=== PATIENT | male | born 1970 | race Caucasian/White ===

== ENCOUNTER → 2024-11-05 | Outpatient (CLI) | payer BC, SELFPAY ==
--- NOTE | 2024-11-05 13:26 | NEURO ---
NCS and/or EMG Patient Report Ordering Doctor: Michael Chen DATE OF SERVICE: 11/05/24 Joe presents with complaints of numbness and burning in the right arm. He reports pain that radiates from the shoulder down tp the hand. Electrodiagnostic findings: Right median motor nerve demonstrates normal distal latency, amplitude with mildly reduced conduction velocity. Right ulnar motor response within normal limits. Normal sensory responses are noted. Needle EMG testing was performed in the upper limbs. All muscles tested showed no evidence of denervation with normal motor unit action potentials. Electrodiagnostic impression: This is a normal electrodiagnostic study of the right upper limb. There is no electrodiagnostic evidence for peripheral neuropathy, including recurrent carpal tunnel syndrome. There is no electrodiagnostic evidence for cervical radiculopathy or brachial plexopathy [facility] Codes Neurology Neurology Interp Codes: 83252-96 Musc test done w/n test comp (interp) and 53839-80 Nrv cndj test 7-8 studies (interp)
--- OUTSIDE RECORDS SUMMARY | 2024-11-05 19:37 | XMS RPT_ITS | CCD ---
Author Organization [facility] Care Team Providers Care Starch Cooker Name Role Phone FEROZ CARR Unavailable Unavailable FEROZ CARR Unavailable Unavailable NO FAMILY DOCTOR, NO FAMILY DOCTOR Unavailable Unavailable Dr. FEROZ CARR Attending Unavaila ROXIE Cope Attending Unavailable ROXIE CURRY Referring Unavailable Generic Provider , No Assigned Pcp Primary Car e Provider Unavailable FEROZ FARLEY Referring Unavailable GENERIC PROVIDER, NO ASSIGNED PCP Primary Care Unavailable Sergio PREM, Luke E Unavailable [phone] Unavailable Unavailable Maria Esther Tineo Unavailable Unavailable Olga Álvarez LPN Unavailable Unavailabl e SERGIO, LUKE E Attending Unavailable SERGIO, LUKE E Consulting Unavailable SERGIO, LUKE E Primary Care Unavailable SERGIO, LUKE E Admitting Unavailable PROVIDER, UNKNOWN Consulting Unavailable Sergio, Luke Referring Unavailable Sergio, Luke Attending Unavailable Sergio, Luke Consulting Unavailable Sergio, Luke Primary Care Unavailable Elliot SR VICE PRESIDENTSánchez Unavailable Unavailable Allergies Allergy Classification Reported Allergen(s) Allergy Type Date of Onset Reaction(s) Facility (1 source) ALLERGIES NOT ON FILE; Translations: [ALLERGIES NOT ON FILE] Propensity to adverse reactions (disorder) [facility] Repository Medications Current Medications Medication Drug Class(es) Dates Sig (Normalized) Sig (Original) cholecalciferol 0.05 mg oral tablet (7 sources) Vitamin D Vitamin D3 50 mc g (2,000 unit) tablet ; 1 tablet weekly (50 mcg (2,000 uni) Comments: takes 50,000iu Comment on above: takes 50,000iu hydroCHLOROthiazide 25 mg / spironolactone 25 mg oral tablet (7 sources) Thiazide Diuretic, Aldosterone Antagonist Start: 11-04-2024 spironolactone 25 mg-hydrochlorothia zide 25 mg tablet ; 1/2 tablet tablet daily for 0 days Quantity: 90 {Tablet} Refills: 0 Ordered: 04-Nov-2024 VELVET Zarate Start: 04-Nov-2024 levothyroxine sodium 0.137 mg oral tablet (14 sources) l-Thyroxine Start: 11-03-2024 levothyroxine 137 mcg tablet ; 1 (one) tablet daily for 90 days Quantity: 90 {Tablet} Refills: 0 Ordered: 04-Nov-2024 PREM Hill Start: 04-Nov-2024 Start: 09-09-2024 End: 10-14-2024 levothyroxine 137 mcg tablet ; 1 (one) tablet daily for 30 days Quantity: 30 {Tablet} Refills: 1 Ordered: 09-Sep-2024 VELVET Álvarez Start: 09-Sep-2024 pantoprazole 20 mg delayed release oral tablet (7 sources) Proton Pump Inhibitor pantoprazo le 20 mg tablet,delayed release ; 1 tablet daily (20 mg) tamsulosin hydrochloride 0.4 mg oral capsule (7 sources) alpha-Adrenergic Luda tamsulo sin 0.4 mg capsule ; 1 tab daily (0.4 mg) Completed/Discontinued Medications Medication Drug Class(es) Dates Sig (Normalized) Sig (Original) gabapentin 100 mg oral capsule (5 sources) Anti-epileptic Agent Start: 10-14-2024 End: 10-28-2024 gabapentin 100 mg capsule ; 2 (two) capsule three times daily for 14 days Quantity: 84 {Capsule} Refills: 0 Ordered: 14-Oct-2024 PREM Hill Start: 14-Oct-2024 End: 28-Oct-2024 Status: Inactive Problems Active Problems Problem Classification Problem Date Documented Date Episodic/Chronic Esophageal disorders (14 sources) Gastroesophageal reflux disease; Translations: [Gastro-esophageal reflux disease without esophagitis] 09-09-2024 Chronic Essential hypertension (15 sources) Hypertensive disorder; Translations: [Essential (primary) hypertension] 09-09-2024 Chronic Comment on above: spironolactone-HCTZ Hyperplasia of prostate (14 sources) Benign prostatic hyperplasia; Translations: [Benign prostatic hyperplasia without lower urinary tract symptoms] 09-09-2024 Chronic Comment on above: tamsulosin Nutritional deficiencies (14 sources) Vitamin D deficiency; Translations: [Vitamin D deficiency, unspecified] 09-09-2024 Chronic Comment on above: cholecalciferol Other lower respiratory disease (1 source) Unspecified acute lower respiratory infection; Translations: [Unspecified acute lower respiratory infection] Onset: 02-16-2024 Episodic Other nervous system disorders (10 sources) Paresthesia of right upper limb; Translations: [Paresthesia of skin] 10-14-2024 Episodic Thyroid disorders (20 sources) Hypothyroidism; Translations: [Hypothyroidism, unspecified] 09-09-2024 Chronic Unclassified (2 sources) Sprain of unspecified site of right knee, initial encounter / S83.91XA(ICD-9) Onset: 06-05-2017 Unclassified (1 source) Patient encounter status 03-26-2024 Past or Other Problems Problem Classification Problem Date Documented Date Episodic/Chronic Unclassified (1 source) Sprain of unspecified site of right knee, initial encounter; Translations: [Sprain of unspecified site of right knee, initial encounter] Onset: 06-05-2017 Unclassified (7 sources) establish care - Patient states that he was seeing Kimmy SO at [facility] and needed new PCP since she is no longer practicing. Patient states that he needs refills on his levothyroxine, he has been out of medication for approximately 3 weeks, he last notes TSH testing approximately 1 year ago. Patient states he has no other concerns for today. Patient states that all other medications are working well. 09-09-2024 Unclassified (5 sources) Arm pain - The pain is in the right arm. The onset of the pain has been gradual and has been occurring in a persistent pattern for 1 month. The course has been increasing. The pain is described as moderate. Note for Pain: Patient states he does have hx of shoulder dislocating/dislodg ing itself. Patient states no injury noted and, no new exertion. Patient states it feels like a burning and tingling when at it's worst. 10-14-2024 NEGATED: Highlighted row has been ruled out!Unclassified (1 source) No Problem Information Available Results Test Name Value Interpretation Reference Range Facility CERVICAL SP COMPLETE, 4 OR 5 VIEWS 05-27-2025 CERVICAL SP COMPLETE, 4 OR [address] [address] Patient: CHAVEZ CURRY Phone#: : [phone] Age: 54 Gender: M Pt. Type: Out Account: [id number] Location: [facility] Ordering: MICHAEL HILL Exam Date: 10/14/2024/16:42 Family Phys: Charge Code: [id number] Physician: Tompkins Order #: [id number] Dose#: PROCEDURE: X-RAY CERVICAL SPINE W/ AP, LATERAL, ODONTOID, AND OLBIQUES VIEWS COMPARISON: None. INDICATIONS: Paresthesia of right arm. FINDINGS: BONES: Vertebral bodies are maintained in height and alignment. Fracture subluxation. The dens is intact. Lateral masses are symmetric. Bulky facet arthropathy of the mid right cervical spine contributing to right C5-6 osseous foraminal narrowing limited evaluation of the left oblique radiograph due to patient positioning. DISC SPACES: Normal. No significant disc height narrowing, subluxation, or endplate abnormality. PARASPINOUS: Negative. No paraspinous abnormality is seen. OTHER: Negative. CONCLUSION: 1. Facet arthropathy contributes to at least right osseous foraminal narrowing Dictated by: Porsche Katz MD on 10/14/2024 at 17:10 Approved by: Porsche Katz MD on 10/14/2024 at 17:12 Normal [facility] T4, FREEon 10-11-2024 Free T4 [Mass/Vol] 1.1 ng/dL Normal 0.8-1.8 [facility] Comment on above: Performed By: #### 8 99, 551 #### [facility] [address], [address] [place] [phone] Returned Goods Sorter: Ervin cShafer MD TSHon 10-11-2024 TSH Qn 1.49 m[IU]/L Normal 0.40-4.50 [facility] Comment on above: Performed By: #### 8 99, 679 #### [facility] [address], [address] [place] [phone] Returned Goods Sorter: Ervin Schafer MD Laboratory - Chemistry and C hemistry - challengeon 10-10-2024 Free T4 [Mass/Vol] 1.1 ng/dL Normal 0.8 - 1.8 ng/dL [facility]. TSH Qn 1.49 m[IU]/L Normal 0.40 - 4.50 {mIU/L} [facility] [employer]. XR CHEST 1 VIEWon 03-26-2024 XR CHEST 1 VIEW Interpreted By: Romelia Treviño, STUDY: XR CHEST 1 VIEW; 03/26/2024 12:42 pm INDICATION: Signs/Symptoms:xray. COMPARISON: 03/14/2019 ACCESSION NUMBER(S): [id number] ORDERING CLINICIAN: FEROZ CARR FINDINGS: The heart is normal in size. There is consolidation or pleural fluid. The mediastinum is unremarkable. There are degenerative changes. COMPARISON OF FINDING: The chest is similar. IMPRESSION: No acute cardiopulmonary disease. MACRO: none Signed by: Romelia Herrera 03/28/2024 8:45 AM Dictation workstation: [id number] [facility] XR CHEST PA AND LATERALon XR CHEST PA AND LATERAL EXAMINATION: TWO XRAY VIEWS OF THE CHEST 02/16/2024 8:56 am COMPARISON: None. HISTORY: cough x 3 weeks, wheeze Pt presents with cough x 3 weeks, no previous sx to the chest or lungs, non smoker, cough is non productive with SOB at times, no other chest complaints FINDINGS: Mildly prominent interstitial markings could be congestive changes and or interstitial pneumonia. No focal consolidation, pneumothorax or significant pleural effusion. Cardiac and mediastinal silhouettes unremarkable. No acute osseous abnormality. IMPRESSION: Mildly prominent interstitial markings could be congestive changes and or interstitial pneumonia. Pt presents with cough x 3 weeks, no previous sx to the chest or lungs, non smoker, cough is non productive with SOB at times, no other chest complaints Normal [facility] Final Surgical Pathology Rep [facility] 05-15-2023 Final Surgical Pathology Report . Pathology Reports Accession: Collected Date/Time: Received Date/Time: Pathologist: [id number] 05/10/2023 10:48 EST 05/11/2023 08:15 EST MD STUART MURRIETA Final Surgical Pathology Report DIAGNOSIS: GASTRIC ANTRUM, BIOPSY: - MILD CHRONIC GASTRITIS - NEGATIVE FOR H. PYLORI CLINICAL INFORMATION: GASTROESOPHAGEAL REFLUX DISEASE SPECIMEN: A GASTRIC ANTRUM - H PYLORI GROSS DESCRIPTION: All parts labelled with patient name and [id number] Received in formalin labeled antrum are 2 lozano-pink tissue fragments measuring 0.2 and 0.4 x 0.2 cm. TS-1 Monica Childs, Grossing Char Conveyor Tender/ Dr. Arsen Joyner, Pathologist Dictated by Monica Childs MICROSCOPIC DESCRIPTION: The microscopic examination is performed, except in the case of Gross Only. Electronically Signed by Pathology Report verified by [facility] STUART MURRIETA MD Sign out Date: 05/15/2023 15:21 Performing Lab: [facility], [address] [place] [address] Pathology Dept Disclaimer If ancillary studies were utilized, the following Laboratory Developed Test (LDT) disclaimer will apply: Under CLIA requirements, [facility] Pathology Laboratory is qualified to perform high complexity testing. For all ancillary stains, positive and negative controls stain appropriately. Performance characteristics of immunohistochemical and chromogenic in-situ hybridization tests have been determined by [facility] Pathology Laboratory. These tests are used for clinical purposes, They should not be regarded as investigational or for research. Normal [facility] ([place]) LEAD,INDUSTRIAL EXPOSURE Kyrie LINDSEY 04-11-2022 LEAD, INDUSTRIAL <2.0 Normal <=4.9 [facility] Comment on above: Result Comment: INTE RPRETIVE INFORMATION: Lead, Industrial Exposure Panel, Adults Analysis performed by Inductively Coupled Plasma-Mass Spectrometry (ICP-MS). Elevated results may be due to skin or collection-related contamination, including the use of a noncertified lead-free collection/transport tube. If contamination concerns exist due to elevated levels of blood lead, confirmation with a second specimen collected in a certified lead-free tube is recommended. Reference interval and interpretive comments are based on the CDC's Childhood Lead Poisoning Prevention: Recommended Actions Based on Blood Lead Level and the Adult Blood Lead Epidemiology and Surveillance: Reference Blood Lead Levels (BLLs) for Adults in the [place] Thresholds and time intervals for retesting, medical evaluation, and response vary by state and regulatory body. Actions described by OSHA in 1978 and finalized in 1982 are shown below. Contact your State Department of Health and/or applicable regulatory agency for specific guidance on medical management recommendations. Concentration Comment 5-19.9 ug/dL Medical removal is recommended for women or those who are trying or may become . Adverse health effects are possible. Reduced lead exposure and increased blood lead monitoring are recommended. 20-69.9 ug/dL Adverse health effects are indicated. Medical removal from lead exposure is required by OSHA if blood lead level exceeds 50 ug/dL. Prompt medical evaluation is recommended. Greater than Critical. Immediate medical evaluation 69.9 ug/dL is recommended. Consider chelation therapy when symptoms of lead toxicity are present. Occupational Safety and Health Standards: Lead (1983). 29 CFR Part 1910.1025 Jaky C Action required for workers with Elevated Lead Values OSHA, Occupational Exposure to Lead, 1977 No. of Tests Lead Action Required 1 Greater than Notification of worker in or equal to writing; medical examination 40.0 ug/dL of worker and consultation. 3 (average) Greater than Removal of worker from job or equal to with potential lead 50.0 ug/dL exposure. 1 Greater than Removal of worker from job or equal to with potential lead 60.0 ug/dL exposure. 2 Less than Reinstatement of worker in 40.0 ug/dL job with potential lead exposure is based upon symptoms and medical evaluation. OSHA requirements in effect since 1977 call for the measurement of whole blood lead and zinc protoporphyrins (ZPP) (NCCLS document C42-A, 1995) to evaluate the occupational exposure to lead. OSHA requires ZPP whole blood testing to be reported in units of ug/dL. For adults, conversion of ZPP units of ug/dL whole blood assumes a hematocrit of 45 percent. Conversion factor: umol/mol heme x 0.584= ug/dL. This test was developed and its performance characteristics determined by [employer]. It has not been cleared or approved by the U.S. Food and Drug Administration. This test was performed in a CLIA-certified laboratory and is intended for clinical purposes. Performed By: #### L EDIP #### [facility] [address] [place] [address] ZINC, PROTOPORPHYRIN BLOOD 26 ug/dL Normal 0-40 [facility] Comment on above: Result Comment: INTE RPRETIVE INFORMATION: Zinc Protoporphyrin, Blood For occupational exposure to lead, OSHA requires ZPP whole blood concentration to be reported in units of ug/dL. For adults, conversion of ZPP to units of ug/dL assumes a hematocrit of 45%. This test was performed on the ProtoFluor Z system manufactured by [employer]. The result is not comparable to results obtained from extraction-based methods or from the [employer] ZPP system. This test was developed and its performance characteristics determined by [employer]. It has not been cleared or approved by the U.S. Food and Drug Administration. This test was performed in a CLIA-certified laboratory and is intended for clinical purposes. Performed By: [facility] [address] [place] [id number] Inserting Machine Operator: Jensen Last MD, PhD Performed By: #### L EDIP #### [address] [address] ZINC, PROTOPORPHYRIN (ZPP) RATIO 45 umolZPP/molHem Normal 0-69 [facility] Comment on above: Result Comment: INTE RPRETIVE INFORMATION: Zinc Protoporphyrin (ZPP) WholeBld Ratio This test was performed on the ProtoFluor Z system manufactured by [employer]. The result is not comparable to results obtained from extraction-based methods or from the [employer]MAN ZPP system. The test was developed and its performance characteristics determined by [employer]. It has not been cleared or approved by the U.S. Food and Drug Administration. This test was performed in a CLIA-certified laboratory and is intended for clinical purposes. Performed By: #### L EDIP #### [address] [address] BETA 2 MICROGLOBULINon 04-05 BETA 2 MICROGLOBULIN 2.2 mg/L Normal 0.7 - 2.2 [facility] Comment on above: Performed By: #### B 2MIC #### [facility] [address] [place] [address] CBC AND DIFFERENTIALon 04-04 % AUTOMATED IMMATURE GRAN 0.2 % Normal 0.0 - 0.9 [facility] Comment on above: Result Comment: Norma ture Granulocyte Count (IG) includes promyelocytes, myelocytes and metamyelocytes but does not include bands. Percent differential counts (%) should be interpreted in the context of the absolute cell counts (cells/L). Performed By: #### C BCDF #### [address] [id number] Basophils (Bld) [#/Vol] 0.04 10*3/uL Normal 0.00 - 0.10 [facility] Comment on above: Performed By: #### C BCDF #### [address] [id number] Basophils/100 WBC (Bld) 0.7 % Normal 0.0 - 2.0 [facility] Comment on above: Performed By: #### C BCDF #### [address] [id number] Eosinophils (Bld) [#/Vol] 0.06 10*3/uL Normal 0.00 - 0.70 [facility] Comment on above: Performed By: #### C BCDF #### [address] [id number] Eosinophils/100 WBC (Bld) 1.0 % Normal 0.0 - 6.0 [facility] Comment on above: Performed By: #### C BCDF #### [address] [id number] Erythrocyte distribution width (RBC) [Ratio] 11.9 % Normal 11.5 - 14.5 [facility] Comment on above: Performed By: #### C BCDF #### [address] [id number] Hematocrit (Bld) [Volume fraction] 52.4 % High 41.0 - 52.0 [facility] Comment on above: Performed By: #### C BCDF #### [address] [id number] Hemoglobin (Bld) [Mass/Vol] 17.8 g/dL High 13.5 - 17.5 [facility] Comment on above: Performed By: #### C BCDF #### [address] [id number] Lymphocytes (Bld) [#/Vol] 1.20 10*3/uL Normal 1.20 - 4.80 [facility] Comment on above: Performed By: #### C BCDF #### [address] [id number] Lymphocytes/100 WBC (Bld) 19.8 % Normal 13.0 - 44.0 [facility] Comment on above: Performed By: #### C BCDF #### [address] [id number] MCHC (RBC) [Mass/Vol] 34.0 g/dL Normal 32.0 - 36.0 [facility] Comment on above: Performed By: #### C BCDF #### [address] [id number] MCV (RBC) [Entitic vol] 98 fL Normal 80 - 100 [facility] Comment on above: Performed By: #### C BCDF #### [address] [id number] Monocytes (Bld) [#/Vol] 0.58 10*3/uL Normal 0.10 - 1.00 [facility] Comment on above: Performed By: #### C BCDF #### [address] [id number] Monocytes/100 WBC (Bld) 9.6 % Normal 2.0 - 10.0 [facility] Comment on above: Performed By: #### C BCDF #### [address] [id number] Neutrophils (Bld) [#/Vol] 4.17 10*3/uL Normal 1.20 - 7.70 [facility] Comment on above: Performed By: #### C BCDF #### [address] [id number] Neutrophils/100 WBC (Bld) 68.7 % Normal 40.0 - 80.0 [facility] Comment on above: Performed By: #### C BCDF #### [address] [id number] Platelets (Bld) [#/Vol] 193 10*3/uL Normal 150 - 450 [facility] Comment on above: Performed By: #### C BCDF #### [address] [id number] RBC 5.37 x10E12/L Normal 4.50 - 5.90 [facility] Comment on above: Performed By: #### C BCDF #### [address] [id number] WBC (Bld) [#/Vol] 6.1 10*3/uL Normal 4.4 - 11.3 [facility] Comment on above: Performed By: #### C BCDF #### [address] [id number] COMPREHENSIVE PANELon 2021 Albumin [Mass/Vol] 4.3 g/dL Normal 3.4 - 5.0 [facility] Comment on above: Performed By: #### C MP #### [address] [id number] ALP [Catalytic activity/Vol] 58 U/L Normal 33 - 120 [facility] Comment on above: Performed By: #### C MP #### [address] [id number] ALT [Catalytic activity/Vol] 30 U/L Normal 10 - 52 [facility] Comment on above: Result Comment: Cammy ents treated with Sulfasalazine may generate falsely decreased results for ALT. Performed By: #### C MP #### [address] [id number] Anion gap [Moles/Vol] 13 mmol/L Normal 10 - 20 [facility] Comment on above: Performed By: #### C MP #### [address] [id number] AST [Catalytic activity/Vol] 26 U/L Normal 9 - 39 [facility] Comment on above: Performed By: #### C MP #### [address] [id number] Bilirubin [Mass/Vol] 0.7 mg/dL Normal 0.0 - 1.2 [facility] Comment on above: Performed By: #### C MP #### [address] [id number] Calcium [Mass/Vol] 10.1 mg/dL Normal 8.6 - 10.3 [facility] Comment on above: Performed By: #### C MP #### [address] [id number] Chloride [Moles/Vol] 101 mmol/L Normal 98 - 107 [facility] Comment on above: Performed By: #### C MP #### [address] [id number] Creatinine [Mass/Vol] 0.99 mg/dL Normal 0.50 - 1.30 [facility] Comment on above: Performed By: #### C MP #### [address] [id number] eGFR MALE >90 Normal >90 [facility] Comment on above: Result Comment: CALC ULATIONS OF ESTIMATED GFR ARE PERFORMED USING THE 2020 CKD-EPI STUDY REFIT EQUATION WITHOUT THE RACE VARIABLE FOR THE IDMS-TRACEABLE CREATININE METHODS. https://jasn.asnjournals.org/content/early//ASN.05175837 88 Performed By: #### C MP #### [address] [id number] Glucose [Mass/Vol] 72 mg/dL Low 74 - 99 [facility] Comment on above: Performed By: #### C MP #### [address] [id number] HCO3 (Bld) [Moles/Vol] 29 mmol/L Normal 21 - 32 [facility] Comment on above: Performed By: #### C MP #### [address] [id number] Potassium [Moles/Vol] 4.8 mmol/L Normal 3.5 - 5.3 [facility] Comment on above: Performed By: #### C MP #### [address] [id number] Protein [Mass/Vol] 7.6 g/dL Normal 6.4 - 8.2 [facility] Comment on above: Performed By: #### C MP #### [address] [id number] Sodium [Moles/Vol] 138 mmol/L Normal 136 - 145 [facility] Comment on above: Performed By: #### C MP #### [address] [id number] Urea nitrogen [Mass/Vol] 16 mg/dL Normal 6 - 23 [facility] Comment on above: Performed By: #### C MP #### [address] [id number] LIPID PANEL (CORONARY RISK 2 )on 04-04-2022 Cholesterol [Mass/Vol] 236 mg/dL High 0 - 199 [facility] Comment on above: Result Comment: . AGE DESIRABLE BORDERLINE HIGH HIGH 0-19 Y 0 - 169 170 - 199 >/= 200 20-24 Y 0 - 189 190 - 224 >/= 225 >24 Y 0 - 199 200 - 239 >/= 240 All ranges are based on fasting samples. Specific therapeutic targets will vary based on patient-specific cardiac risk. . Pediatric guidelines reference:Pediatrics 2011, 128(S5). Adult guidelines reference: NCEP ATPIII Guidelines, OPAL 2001, 258:2486-97 . Venipuncture immediately after or during the administration of Metamizole may lead to falsely low results. Testing should be performed immediately prior to Metamizole dosing. Performed By: #### L IPID #### [address] [id number] Cholesterol in HDL [Mass/Vol] 57.0 mg/dL Normal [facility] Comment on above: Result Comment: . AGE VERY LOW LOW NORMAL HIGH 0-19 Y < 35 < 40 40-45 ---- 20-24 Y ---- < 40 >45 ---- >24 Y ---- < 40 40-60 >60 . Performed By: #### L IPID #### [address] [id number] Cholesterol in LDL [Mass/Vol] 154 mg/dL High 0 - 99 [facility] Comment on above: Result Comment: . NEAR BORD AGE DESIRABLE OPTIMAL HIGH HIGH VERY HIGH 0-19 Y 0 - 109 --- 110-129 >/= 130 ---- 20-24 Y 0 - 119 --- 120-159 >/= 160 ---- >24 Y 0 - 99 100-129 130-159 160-189 >/=190 . Performed By: #### L IPID #### [address] [id number] Cholesterol in VLDL [Mass/Vol] 25 mg/dL Normal 0 - 40 [facility] Comment on above: Performed By: #### L IPID #### [address] [id number] Cholesterol.total/C holesterol in HDL [Mass ratio] 4.1 {ratio} Normal [facility] Comment on above: Result Comment: REF VALUES DESIRABLE < 3.4 HIGH RISK > 5.0 Performed By: #### L IPID #### [address] [id number] Triglyceride [Mass/Vol] 126 mg/dL Normal 0 - 149 [facility] Comment on above: Result Comment: . AGE DESIRABLE BORDERLINE HIGH HIGH VERY HIGH 0 D-90 D 19 - 174 ---- ---- ---- 91 D- 9 Y 0 - 74 75 - 99 >/= 100 ---- 10-19 Y 0 - 89 90 - 129 >/= 130 ---- 20-24 Y 0 - 114 115 - 149 >/= 150 ---- >24 Y 0 - 149 150 - 199 200- 499 >/= 500 . Venipuncture immediately after or during the administration of Metamizole may lead to falsely low results. Testing should be performed immediately prior to Metamizole dosing. Performed By: #### L IPID #### [address] [id number] URINALYSISon 04-04-2022 Appearance (U) CLEAR Normal CLEAR [facility] Comment on above: Performed By: #### U A #### [address] [id number] Bilirubin Ql (U) Negative Normal NEGATIVE [facility] Comment on above: Performed By: #### U A #### [address] [id number] Color (U) STRAW Normal STRAW,YELLOW [facility] Comment on above: Performed By: #### U A #### [address] [id number] Glucose Ql (U) Negative Normal NEGATIVE [facility] Comment on above: Performed By: #### U A #### [address] [id number] Hemoglobin Ql (U) Negative Normal NEGATIVE [facility] Comment on above: Performed By: #### U A #### [address] [id number] Ketones Ql (U) Negative Normal NEGATIVE [facility] Comment on above: Performed By: #### U A #### [address] [id number] Leukocyte esterase Test strip Ql (U) Negative Normal NEGATIVE [facility] Comment on above: Performed By: #### U A #### [address] [id number] Nitrite Ql (U) Negative Normal NEGATIVE [facility] Comment on above: Performed By: #### U A #### [address] [id number] pH (U) 6.0 [pH] Normal 5.0 - 8.0 [facility] Comment on above: Performed By: #### U A #### [address] [id number] Protein Ql (U) Negative Normal NEGATIVE [facility] Comment on above: Performed By: #### U A #### [address] [id number] Specific gravity (U) [Rel density] 1.009 Normal 1.005 - 1.035 [facility] Comment on above: Performed By: #### U A #### [address] [id number] Urobilinogen (U) [Mass/Vol] mg/dL Normal 0.0 - 1.9 [facility] Comment on above: Performed By: #### U A #### [address] [id number] Testosterone, Tot/Fron 07-07 Testosterone [Mass/Vol] 294 ng/dL Normal 240-950 [facility] Comment on above: Performed By: #### M ICRO #### [facility] Routine Lab [address] [place], [place] [address] Testosterone, Free 9.11 ng/dL Normal 4.06-15.6 [facility] Comment on above: Performed By: #### M ICRO #### [facility] Routine Lab [address] [place], [place] [address] Estradiol-17Bon 07-02-2020 Estradiol-17B <25 Normal <38 [facility] Comment on above: Performed By: #### E 2 #### [facility] Routine Lab [address] [place], [place] [address] Free T3on 07-02-2020 Free T3 [Mass/Vol] 3.1 pg/mL Normal 2.3-4.1 [facility] Comment on above: Performed By: #### F REET3 #### [facility] Routine Lab [address] [place], [place] [address] TPO Antibodyon 07-02-2020 TPO Antibody 108.8 IU/mL High <5.6 [facility] Comment on above: Performed By: #### M ICRO #### [facility] Routine Lab [address] [place], [place] [address] Coronavirus 2019on 0 COVID 19 Source [employer] Normal [facility] Comment on above: Result Comment: Naso pharyngeal Swab Called to and read back by: Adebayo Richmond Corrected on 03/21 AT 2330: Previously reported as [employer]OR[employer] IN[employer] SWAB [facility] 03/21/20 2327 Adebayo FeldmanLis Corrected on 03/21 AT 2330: Previously reported as [employer]OR[employer] IN[employer]CTOR SWAB Performed By: #### C OVID #### [facility] Reference [address] [place], [place] [address] COVID 19 Result [employer] Abnormal Negative for COVID19 (SARS CoV2) by PCR. [facility] Comment on above: Result Comment: Posi tive for This test was developed and its performance characteristics determined by [facility] [place]. This test has been authorized by FDA under an Emergency Use Authorization (EUA). This test has been validated in accordance with the FDA's Guidance Document Policy for Diagnostics Testing in Laboratories Certified to Perform High Complexity Testing under CLIA prior to Emergency use Authorization for Coronavirus Disease 2019 during the Public Health Emergency issued on July 19, 2019. COVID19 (SARS This test was developed and its performance characteristics determined by [facility]'s [facility] [place]. This test has been authorized by FDA under an Emergency Use Authorization (EUA). This test has been validated in accordance with the FDA's Guidance Document Policy for Diagnostics Testing in Laboratories Certified to Perform High Complexity Testing under CLIA prior to Emergency use Authorization for Coronavirus Disease 2019 during the Public Health Emergency issued on July 19, 2019. CoV2) by This test was developed and its performance characteristics determined by [facility]'s [facility] [place]. This test has been authorized by FDA under an Emergency Use Authorization (EUA). This test has been validated in accordance with the FDA's Guidance Document Policy for Diagnostics Testing in Laboratories Certified to Perform High Complexity Testing under CLIA prior to Emergency use Authorization for Coronavirus Disease 2019 during the Public Health Emergency issued on July 19, 2019. PCR.(*) This test was developed and its performance characteristics determined by [facility]'s [facility] [place]. This test has been authorized by FDA under an Emergency Use Authorization (EUA). This test has been validated in accordance with the FDA's Guidance Document Policy for Diagnostics Testing in Laboratories Certified to Perform High Complexity Testing under CLIA prior to Emergency use Authorization for Coronavirus Disease 2019 during the Public Health Emergency issued on July 19, 2019. Performed By: #### C OVID #### [facility] Reference [address] [place], [place] [address] MRI RT KNEE W/O CONTRASTon 0 06-05-2017 MRI RT KNEE W/O CONTRAST DATE OF EXAM: Jun 05 2017 11:51AMCLINICAL HISTORY/ Name: PATRICIO CHAVEZSTUDY:MRI RT KNEE W/O CONTRAST; 06/05/2017 11:51 amINDICATION:twisting injury. Twisting injury. Patient slipped on ice. Medial and posterior pain and fullness. No previous knee surgery.COMPARISON:None . ERBRENDA CLINICIAN:FEROZ RO:Multipl ricardo and multisequential MR images of the right knee are performed.FINDINGS:Ther e is a small joint effusion. There is a moderate-sized multilocular and septated Herman's cyst which extends superiorly.There are mild osteoarthritic changes at the medial compartment with mild delamination of the articular cartilage. There is no focal cartilage defect.There is subarticular bone marrow edema across the medial compartment. There is no fracture line or articular collapse.There is mildly complex intermediate signal within the posterior horn of the medial meniscus along the inferior articular surface. Focal intermediate signal is also identified at the posterior inferior corner of the posterior horn. There is no sign of lateral meniscal tear.There is ill-defined fluid and edema superficial to the medial collateral ligament. There is no ligament discontinuity or laxity.The anterior and posterior cruciate ligaments, lateral collateral ligament complex, popliteus tendon, extensor complex, and patellar retinacula are intact.CONCLUSION: IMPRESSION:Subarticular bone marrow edema across the medial compartment is suspicious for bone bruising in this clinical setting. There is no acute fracture or articular collapse.Mild tearing or fraying along the inferior articular surface of the medial meniscus at the posterior horn. This could also reflect posttraumatic edema.Grade 1 sprain of the medial collateral ligament. There is no focal or full-thickness tear.Small joint effusion and moderate-sized multilocular Herman's cyst. Normal [facility] Healthcare Vital Signs Date Time Vital Sign Value Performing Clinician Faci lity 10-14-2024 15:51-0400 Body height 167.64 cm [facility] [place] [employer] [facility]. 10-14-2024 15:51-0400 Body mass index (BMI) [Ratio] 33.57 kg/m2 [facility]. 10-14-2024 15:51-0400 Body surface area Derived from formula 2.03 m2 [facility].; [employer] [facility]. 10-14-2024 15:51-0400 Body weight 94.35 kg [facility] Des[facility], [facility].; [employer] [facility]. 10-14-2024 15:51-0400 Diastolic blood pressure 83 mm[Hg] [facility].; [employer] [employer]. Comment on above: Patient Position: Si tting; Cuff Location: Left Arm; Cuff Size: Standard 10-14-2024 15:51-0400 Heart rate 83 /min [facility] [employer] [facility], [facility].; [employer], [employer]. Comment on above: Pattern: Regular 10-14-2024 15:51-0400 Systolic blood pressure 123 mm[Hg] [facility].; [employer] [facility]. Comment on above: Patient Position: Si tting; Cuff Location: Left Arm; Cuff Size: Standard 09-09-2024 15:23-0400 Body height 167.64 cm Maria Esther SANTIZO [facility], [facility].; [employer] [facility]. 09-09-2024 15:23-0400 Body mass index (BMI) [Ratio] 33.89 kg/m2 [facility] [employer] 09-09-2024 15:23-0400 Body surface area Derived from formula 2.04 m2 Maria Esther [facility] [employer] 09-09-2024 15:23-0400 Body weight 95.26 kg Maria Esther [facility], [facility].; [employer] 09-09-2024 15:23-0400 Diastolic blood pressure 74 mm[Hg] [facility] Esther [facility] [employer]. Comment on above: Patient Position: Si tting; Cuff Location: Left Arm; Cuff Size: Standard 09-09-2024 15:23-0400 Heart rate 73 /min Maria Esther [facility], [facility]. Comment on above: Pattern: Regular 09-09-2024 15:23-0400 Systolic blood pressure 116 mm[Hg] [facility] Esther [facility]. Comment on above: Patient Position: Si tting; Cuff Location: Left Arm; Cuff Size: Standard Encounters Encounter Date Encounter Type Care Provider Facility Start: 11-05-2024 ambulatory [facility] Start: 11-04-2024 End: 11-04-2024 Medication Michael Hill PA-C Work Phone: [facility]. Start: 10-14-2024 End: 10-14-2024 ambulatory MICHAEL HILL [facility] Start: 10-14-2024 End: 10-14-2024 Office outpatient visit 15 minutes Michael Hill PA-C Work Phone: [facility] Start: 10-06-2024 End: 10-06-2024 Orders Michael Hill PA-C Work Phone: [employer] Start: 09-09-2024 End: 09-09-2024 Office outpatient new 30 minutes Michael Hill PA-C Work Phone: [facility]. Start: 03-26-2024 End: 03-26-2024 ambulatory FEROZ CARR [facility] Start: 03-26-2024 End: 03-26-2024 Encounter for general adult medical examination without abnormal findings FEROZ CARR [facility] Start: 03-26-2024 End: 03-26-2024 Patient encounter status Cielo 2 [facility] Work Phone: Start: 03-26-2024 End: 03-26-2024 Subsequent hospital visit by physician Cielo Er X-Ray 2 [facility] Comment on above: Encounter for genera l adult medical examination without abnormal findings Start: 02-16-2024 End: 02-16-2024 ambulatory [facility] Start: 04-04-[address] FEROZ CARR Facility:[id number] Start: 04-04-2022 Encounter for genera l adult medical examination without abnormal findings Dr. FEROZ CARR Facility:9507 Start: 06-05-2017 Ambulatory FEROZ CARR Facility:3 Start: 06-05-2017 Ambulatory Facility:9 546 Procedures Date Procedure Procedure Detail Performing Clinician Start: 10-14-2024 End: 10-15-2024 Radex spine cervical 4 or 5 views Michael Hill PA-C Work Phone: Start: 04-04-2022 Lipid 1996 panel - S maggy or Plasma Cielo 2 Plan of Treatment Date Care Activity Detail Author Start: 04-04-2027 Lipid panel Lipid Panel [facility] Start: 10-14-2024 End: 10-15-2024 Ndl emg 1 xtr w/wo related paraspinal areas [facility] [employer] Start: 10-14-2024 Radex spine cervical 4 or 5 views Cervical Spine x-ray (37853) Start: 14-Oct-2024 Intent [facility] [employer] Start: 05-23-2025 Nursing evaluation o f patient and report Medical; Nurse visit - NON FASTING LABS-LE [facility]. Start: 10-Oct-2024 15:00-04:00 NURSE, FLOAT Appointment Request [facility]. Start: 10-10-2024 Assay of thyroid stimulating hormone tsh TSH (THYROID STIMULATING HORMONE) ([id number]) Start: 10-Oct-2024 08:40-04:00 Request [facility].; [facility] Start: 10-10-2024 Assay of free thyroxine T4 ALISIA E (96957) Start: 10-Oct-2024 08:40-04:00 Request [facility]; [facility]. Start: 01-20-2024 COVID-19 Vaccine ( season) COVID-19 Vaccine ( season) [facility] Start: 01-20-2024 Influenza vaccination Influenza Vacc ine (#1) [facility] Start: 2019 Zoster Vaccines (1 o f 2) Zoster Vaccines (1 of 2) [facility] Start: 1991 DTaP/Tdap/Td Vaccine s (1 - Tdap) DTaP/Tdap/Td Vaccines (1 - Tdap) [facility] Start: 1988 Hepatitis B Vaccines (1 of 3 - 19+ 3-dose series) Hepatitis B Vaccines (1 of 3 - 19+ 3-dose series) [facility] Start: 1987 Hepatitis C screening Hepatitis C [facility] Start: 1970 MMR Vaccines (1 of 1 - Standard series) MMR Vaccines (1 of 1 - Standard series) [facility] Start: 1969 HIV [facility] Start: 1969 Screening for malign ant neoplasm of colon [facility] Start: 1969 Yearly Adult Physical Yearly Adult P hysical [facility] End: 03-26-2024 XR Chest Single view [facility] Service Area Work Phone: Comment on above: Once for 1 Occurrenc es starting 03/26/2024 until 03/26/2024 Immunizations Immunization Date Immunization Notes Care Provider Indigo rawls 03-30-2023 influenza virus vacc ine, unspecified formulation Cielo 2 [facility] Work Phone: Payers Date Payer Category Payer Self-pay 2024 Unknown [id number] 1970 Unknown [id number] [id number] Self-pay 0000 Unknown [id number] Unknown 0926 Unknown [id number] [id number] [id number] Unknown ANTHEM Unknown [id number] [id number] [id number] Social History Date Type Detail Facility Tobacco smoking stat [facility] Tobacco smoking consumption unknown [facility] Work Phone: Start: 1970 Sex assigned at Not on file [facility] Work Phone: Gender identity Not on file [facility] Work Phone: Start: 03-16-2024 End: 03-26-2024 Exposure to SARS-CoV-2 (event) Not sure [facility] Male [facility]; [facility]. Work Phone: Alcohol Use: Alcohol Use: ; Moderate alcohol use. [facility] [employer] Caffeine Use Caffeine Use [facility] [employer] Tobacco Use: Tobacco Use: ; U ses snuff. [facility].; [employer] Uses snuff [facility] [employer], [employer] Work Phone: NEGATED: Highlighted row No Social History Information Available No Social History Information Available [facility] Work Phone: Evaluation note Note Date & Type Note Facility Evaluation note Diagnosis Encounter for general adult medical examination without abnormal findings documented in this encounter [facility] Work Phone: Reason for visit Narrative Imaging (Routine) - Authorized Note Date & Type Note Facility Reason for visit Narrative Specialty Diagnoses / Procedures Referred By Bhavani t Referred To Contact Radiology Diagnoses Encounter for general adult medical examination without abnormal findings Procedures XR chest [place] [address] [place] [address] Phone: tel: fax: Referral ID Status Reason Start Date Expiration Date Visits Requested Visits Authorized [id number] Authorized Perform Procedure 03/26/2024 03/26/2025 1 1 [facility] Work Phone: Summary Purpose Family History No Family History Records FoundNo Family History Records FoundNo Family History Records FoundNo Family History Records FoundNo Family History Records FoundNo Family History Records FoundNo Family History Records FoundNo Family History Records FoundNo Family History Records FoundNo Family History Records Found Advance Directives No Advanced Directives Records FoundNo Advanced Directives Records FoundNo Advanced Directives Records FoundNo Advanced Directives Records FoundNo Advanced Directives Records FoundNo Advanced Directives Records FoundNo Advanced Directives Records FoundNo Advanced Directives Records FoundNo Advanced Directives Records FoundNo Advanced Directives Records Found Additional Source Comments (unrecognized sect ion and content) No Status Records FoundNo Status Records FoundNo Status Records FoundNo Status Records FoundNo Status Records FoundNo Status Records FoundNo Status Records FoundNo Status Records FoundNo Status Records FoundNo Status Records Found INFORMATION SOURCE (unrecogn ized section and content) DATE CREATED AUTHOR 11/08/2017 [facility] DATE CREATED AUTHOR AUTHOR'S ORGANIZ ATION 11/12/2017 [facility] DATE CREATED AUTHOR AUTHOR'S ORGANIZ ATION 07/08/2020 [facility] DATE CREATED AUTHOR AUTHOR'S ORGANIZ ATION 04/11/2022 [facility] DATE CREATED AUTHOR AUTHOR'S ORGANIZ ATION 05/17/2023 [facility] DATE CREATED AUTHOR AUTHOR'S ORGANIZ ATION 02/17/2024 [facility] DATE CREATED AUTHOR AUTHOR'S ORGANIZ ATION 05/23/2024 [facility] DATE CREATED AUTHOR AUTHOR'S ORGANIZ ATION 10/17/2024 [facility] DATE CREATED AUTHOR AUTHOR'S ORGANIZ ATION 10/17/2024 [facility] DATE CREATED AUTHOR AUTHOR'S ORGANIZ ATION 10/27/2024 [facility] Care Teams (unrecognized sec tion and content) Starch [employer]er Relationship Specialty Start Date End Date Generic Provider, No Assigned Pcp, [place] [address] PCP - General Professor Of Religious Studies 03/26/24 FOR RECORDS PERTAINING TO PATIENTS WHO ARE OR HAVE BEEN ENROLLED IN A CHEMICAL DEPENDENCY/SUBSTANCEABUSE PROGRAM, SOME INFORMATION MAY BE OMITTED. This clinical summary was aggregated from multiple sources. Caution should be exercised in using it in the provision of clinical care. This summary normalizes information from multiple sources, and as a consequence, information in this document may materially change the coding, format and clinical context of patient data. In addition, data may be omitted in some cases. CLINICAL DECISIONS SHOULD BE BASED ON THE PRIMARY CLINICAL RECORDS. [facility] [employer] provides no warranty or guarantee of the accuracy or completeness of information in this document.
== END | disposition home or self-care (01) ==
PROVIDERS: PCP Physician Assistant; Referring Provider Physician Assistant; Visit Provider Physician Assistant
DX: R20.2 Paresthesia of skin (principal)
CPT/HCPCS: 95886; 95910